=== PATIENT | male | born 1985 | race Hispanic/Latino ===

== ENCOUNTER 2019-04-09 18:34 | Emergency (ER) | payer SELFPAY ==
[~2019-04-09 18:34] MED LIST: ISOVUE-370 76%-LOCM 1 ML ONE
[2019-04-09] MEDS ORDERED: Ketorolac Tromethamine 30 MG/ML VIAL ONE (18:46)
[2019-04-09] MEDS ORDERED: Morphine 4 MG/ML VIAL ONE (18:46)
[2019-04-09 18:56] LABS: #Basophils 0.1 thou/uL (0.0-0.2); #Eosinphils 0.1 thou/uL (0.0-0.7); #Lymphocytes 1.9 thou/uL (1.20-3.40); #Monocytes 0.9 thou/uL (0.11-0.59); %Basophils 0.6 % (0.0-1.0); %Eosinophils 1.2 % (0.0-10.0); %Lymphocytes 15.4 % (21.0-51.0); %Monocytes 7.6 % (0.0-10.0); %Neutrophils 75.2 % (42.0-75.0); Hemoglobin 15.6 g/dL (14.0-18.0); Mean Corpuscular HGB CONC 34.7 g/dL (32.0-36.0); Mean Corpuscular Hemoglobin 34.4 pg (27.0-31.0); Mean Corpuscular Volume 99.3 fL (78.0-98.0); Mean Platelet Volume 7.5 fL (7.4-10.4); Platelet Count 295 thou/uL (130-400); RBC Distribution Width 11.4 % (11.5-14.5); Red Blood Cell (RBC) Count 4.54 mill/uL (4.70-6.10)
--- NOTE | 2019-04-09 18:57 | RAD ---
EXAM: Single view of the chest HISTORY: Fall from horse with chest trauma COMPARISON: None FINDINGS: Single view of the chest shows a normal sized cardiomediastinal silhouette. There is no jarred dence of consolidation, mass, or pleural effusion. The bones are unremarkable. IMPRESSION: No evidence of acute cardiopulmonary disease
[2019-04-09 19:07] LABS: ALT (SGPT) 37 U/L (8-55); AST (SGOT) 50 U/L (5-34); Alkaline Phosphatase 40 U/L (40-150); Anion Gap 14 mmol/L (10-20); BUN (Urea Nitrogen) 21 mg/dL (8.9-20.6); Bilirubin, Total 0.6 mg/dL (0.2-1.2); Calc. Creatinine Clearance 0 mL/min (70-130); Calcium 10.1 mg/dL (7.8-10.44); Carbon Dioxide 27 mmol/L (22-29); Chloride 103 mmol/L (98-107); Estimated GFR-MDRD 74; Globulin 2.8 g/dL (2.4-3.5); Glucose 95 mg/dL (70-105); Potassium 3.9 mmol/L (3.5-5.1); Protein, Total 7.8 g/dL (6.0-8.3); Sodium 140 mmol/L (136-145)
--- NOTE | 2019-04-09 19:10 | CT ---
EXAM: 1. CT of the chest with contrast 2. CT of the abdomen and pelvis with contrast 3. Limited CT of the thoracic and lumbosacral spine with contrast HISTORY: Fall from horse with chest pain, abdominal pain, and back pain. COMPARISON: None TECHNIQUE: 1. Multiple contiguous axial images were obtained in a CT the chest with contrast. Coronal reformats were performed. 2. Multiple contiguous axial images were obtained in a CT of the abdomen and pelvis with contrast. Co miladys reformats were performed. 3. Limited CTs of the thoracic and lumbosacral spines were performed with contrast. Sagittal and rosa maria nal re-reformats were created based off images obtained in the chest, abdomen, and pelvic CTs. FINDINGS: CT CHEST: Mediastinum: Heart is normal in size without focal cardiac abnormality. No hilar or mediastinal lymph adenopathy. No mediastinal hemorrhage. Lungs: No focal infiltrates or nodules. Pleural space: No pneumothorax or pleural effusion. Thoracic bones: No evidence of acute fracture. Thoracic chest wall: Unremarkable. CT ABDOMEN/PELVIS: Peritoneum: No free air or free fluid, or stranding changes. Liver: Unremarkable. Gallbladder: Unremarkable. Adrenal glands: Unremarkable. Kidneys: Unremarkable. Spleen: Unremarkable. Pancreas: Unremarkable. Bowel: Unremarkable. Normal appendix. Retroperitoneum: No lymphadenopathy. Pelvis: No focal mass or abnormality. The reproductive organs are unremarkable. Pelvic bones: No acute fracture identified. LIMITED CT OF THE THORACIC AND LUMBOSACRAL SPINE: No fracture or dislocation are seen. No prevertebral soft tissue swelling are present. IMPRESSION: 1. No evidence of acute intrathoracic abnormality 2. No evidence of acute intra-abdominal/pelvic abnormality 3. No evidence of acute osseous abnormality of the thoracic or lumbosacral spine. Dr. Mukherjee notified of findings at 7:07 PM on 04/09/2019
== END 2019-04-09 20:09 | disposition home or self-care (01) ==
LOC: ERS 18:34
DX: S20.219A Contusion of unspecified front wall of thorax, initial encounter (principal); S20.411A Abrasion of right back wall of thorax, initial encounter; V80.010A Animal-rider injured by fall from or being thrown from horse in noncollision accident, initial encounter
CPT/HCPCS: 36415; 71045; 71260; 74177; 80053; 85025; 86850; 86900; 86901; 93005; 96361; 96374; 96375; C1776; J1885; J2270; Q9966